=== PATIENT | female | born 1945 | race Caucasian/White ===

== ENCOUNTER 2017-08-31 09:53 | Outpatient (CLI) | payer MEDICARE | END 2017-08-31 09:54 | disposition short-term general hospital (02) | LOC: EMS 09:53 | PROVIDERS: ATTEND Surgery | DX: R53.1 Weakness (principal); R50.9 Fever, unspecified; M79.601 Pain in right arm; R05 Cough | CPT/HCPCS: A0425; A0427 ==

== ENCOUNTER 2017-09-05 15:25 | Outpatient (CLI) | payer MEDICARE, OTHER | END 2017-09-05 15:26 | disposition short-term general hospital (02) | LOC: EMS 15:25 | PROVIDERS: ATTEND Surgery | DX: R53.1 Weakness (principal); R50.9 Fever, unspecified | CPT/HCPCS: A0170; A0425; A0427 ==

== ENCOUNTER 2018-11-15 10:48 | Outpatient (CLI) | payer MEDICARE, OTHER | END 2018-11-15 10:49 | disposition home or self-care (01) | LOC: LAB.F 10:48 | PROVIDERS: ATTEND Family Medicine | DX: R39.9 Unspecified symptoms and signs involving the genitourinary system (principal) | CPT/HCPCS: 87077; 87086; 87181 ==

== ENCOUNTER 2018-12-20 12:10 | Outpatient (CLI) | payer MEDICARE, OTHER ==
[2018-12-20 17:32] LABS: BILIRUBIN,URINE NEGATIVE (NEGATIVE); GLUCOSE, URINE (UA) NEGATIVE (NEGATIVE); KETONES,URINE (UA) TRACE mg/dL (NEGATIVE); LEUKOCYTE ESTERASE, URINE SMALL (NEGATIVE); NITRITE,URINE NEGATIVE (NEGATIVE); OCCULT BLOOD,URINE SMALL (NEGATIVE); PH,URINE 5.5 PH (5.0-7.5); PROTEIN,URINE 100 mg/dL (NEGATIVE); UROBILINOGEN,URINE 0.2 (NORMAL) E.U./dL (NORMAL)
[2018-12-20 17:59] LABS: BACTERIA,URINE Few /HPF (None Seen); CLARITY,URINE CLEAR (CLEAR); RBC,URINE 0-5 /HPF (0-5); SQUAMOUS EPITHELIAL CELL,UR NONE SEEN (<= Few)
== END 2018-12-20 12:11 | disposition home or self-care (01) ==
LOC: LAB.F 12:10
PROVIDERS: ATTEND Family Medicine
DX: Z87.440 Personal history of urinary (tract) infections (principal)
CPT/HCPCS: 81001

== ENCOUNTER 2019-01-13 13:12 | Outpatient (CLI) | payer MEDICARE, OTHER ==
[2019-01-13 17:53] LABS: BILIRUBIN,URINE NEGATIVE (NEGATIVE); GLUCOSE, URINE (UA) NEGATIVE (NEGATIVE); KETONES,URINE (UA) NEGATIVE (NEGATIVE); LEUKOCYTE ESTERASE, URINE SMALL (NEGATIVE); NITRITE,URINE POSITIVE (NEGATIVE); OCCULT BLOOD,URINE NEGATIVE (NEGATIVE); PH,URINE 5.5 PH (5.0-7.5); PROTEIN,URINE NEGATIVE (NEGATIVE); UROBILINOGEN,URINE 0.2 (NORMAL) E.U./dL (NORMAL)
[2019-01-13 17:57] LABS: CLARITY,URINE SL. CLOUDY (CLEAR)
[2019-01-13 18:06] LABS: BACTERIA,URINE Many /HPF (None Seen); RBC,URINE 0-5 /HPF (0-5); SQUAMOUS EPITHELIAL CELL,UR FEW Squamous (<= Few)
== END 2019-01-13 23:59 | disposition home or self-care (01) ==
LOC: LAB.R 13:12
PROVIDERS: ATTEND Family Medicine
DX: R30.0 Dysuria (principal)
CPT/HCPCS: 81001

== ENCOUNTER 2019-01-30 19:38 | Outpatient (CLI) | payer MEDICARE, OTHER | END 2019-01-30 19:39 | disposition EMS.NT | LOC: EMS 19:38 | PROVIDERS: ATTEND Surgery | DX: T17.928A Food in respiratory tract, part unspecified causing other injury, initial encounter (principal) ==

== ENCOUNTER 2019-06-14 12:01 | Outpatient (CLI) | payer MEDICARE, OTHER | END 2019-06-14 12:02 | disposition short-term general hospital (02) | LOC: EMS 12:01 | PROVIDERS: ATTEND Surgery | DX: R06.02 Shortness of breath (principal); R53.1 Weakness; R09.02 Hypoxemia | CPT/HCPCS: A0425; A0427 ==

== ENCOUNTER 2019-07-08 21:17 | Outpatient (CLI) | payer MEDICARE, OTHER | END 2019-07-08 21:18 | disposition short-term general hospital (02) | LOC: EMS 21:17 | PROVIDERS: ATTEND Surgery | DX: R53.1 Weakness (principal); R47.01 Aphasia | CPT/HCPCS: A0425; A0429 ==